=== PATIENT | female | born 1965 | race Caucasian/White ===

== ENCOUNTER 2019-05-05 22:05 | Emergency (ER) | payer SELFPAY ==
[~2019-05-05] VITALS: Ht 175.3 cm; Wt 77.1 kg
--- OUTSIDE RECORDS SUMMARY | ~2019-05-05 | XMS | Encounter Summary ---
Demographics + + + | Address | [address] | | | [place] [address] | + + + | Home Phone | | + + + | Preferred Language | Unknown | + + + | Marital Status | Unknown | + + + | Gnosticist Affiliation | Unknown | + + + | Race | Unknown | + + + | Ethnic Group | Unknown | + + + Author + + + | Author | [facility] | + + + | Organization | [facility] | + + + | Address | Unknown | + + + | Phone | Unavailable | + + + Care Team Providers + +------+ + | Care Gaming Cashier Name | Role | Phone | + +------+ + PCP | Unavailable | + +------+ + Encounter Details +--------+ + + + + | Date | Type | Department | Care Team | Description | +--------+ + + + + | 02/10/ | ED Progress | [facility] | Chaz Chong, | ED Progress Note | | 2017 | | [address] | MD Isaiah [address] | | | | Note-Transc | [place], [place] | [facility] | | | | ribed | [phone] | [place] [address] | | | | | | [phone] | | | | | | | | +--------+ + + + + Social History + +-------+ +--------+------+ | Tobacco Use | Types | Packs/Day | Years | Date | | | | | Used | | + +-------+ +--------+------+ | Never Assessed | | | | | + +-------+ +--------+------+ + + + | Sex Assigned at | Date Recorded | | | | + + + | Not on file | | + + + + + + + | Job Start Date | Occupation | Industry | + + + + | Not on file | Not on file | Not on file | + + + + + + + + | Travel History | Travel Start | Travel End | + + + + + + | No recent travel history available. | + + documented as of this encounter Plan of Treatment Not on filedocumented as of this encounter Visit Diagnoses Not on filedocumented in this encounter"
--- OUTSIDE RECORDS SUMMARY | ~2019-05-05 | XMS | Encounter Summary ---
Demographics + + + | Address | [address] | | | [place] [address] | + + + | Home Phone | | + + + | Preferred Language | Unknown | + + + | Marital Status | Unknown | + + + | Temple Affiliation | Unknown | + + + [...] Team Providers + +------+ + | Care Turkey Roll Maker Name | Role | Phone | + +------+ + PCP | Unavailable | + +------+ + Encounter Details +--------+ + + + + | Date | Type | Department | Care Team | Description | +--------+ + + + + | 02/09/ | ED Progress | [facility] | Tiarra Doran, | ED Progress Note | | 2016 | | [address] | DNP, CONSUMER MARKETING SPECIALIST-C [address] | | | | Note-Transc | [facility] [place] | [facility] | | | | ribed | [phone] | [place] [address] | | | | | | [phone] | | | | | | | [...]
--- OUTSIDE RECORDS SUMMARY | ~2019-05-05 | XMS | Encounter Summary ---
Demographics + + + | Address | [address] | | | [place] [address] | + + + | Home Phone | | + + + | Preferred Language | Unknown | + + + | Marital Status | Unknown | + + + | Mormon Affiliation | Unknown | + + + [...] Team Providers + +------+ + | Care Early Learning Teacher Name | Role | Phone | + [...] | [address] | DNP, PLATE GLASS INSTALLER HELPER-C [address] | | | | Note-Transc | [facility] [place] | [facility] | | | | ribed | [phone] | [place] [address] | | | | | | [phone] | | | | | | | [...]
--- OUTSIDE RECORDS SUMMARY | ~2019-05-05 | XMS | Clinical Summary ---
Demographics + + + | Address | [address] | | | [place] [address] | + + + | Home Phone | | + + + | Preferred Language | Unknown | + + + | Marital Status | | + + + | Rastafarian Affiliation | Unknown | + + + | Race | Unknown | + + + | Ethnic Group | Unknown | + + + Author + + + | Author | [facility] | | | and [place] | + + + | Organization | [facility] | | | and [place] | + + + | Address | Unknown | + + + | Phone | Unavailable | + + + Support + + +---------+ + | Name | Relationship | Address | Phone | + + +---------+ + | EDYTA MARK | ECON | Unknown | | + + +---------+ + Care Team Providers + +------+ + | Care Rubberizing Mechanic Name | Role | Phone | + +------+ + PCP | Unavailable | + +------+ + Allergies Not on File Medications Not on file Active Problems Not on file Social History + +-------+ +--------+------+ | Tobacco [...] recent travel history available. | + + Last Filed Vital Signs Not on file Plan of Treatment + + + + + | Health Maintenance | Due Date | Last Done | Comments | + + + + + | Vaccine: | | | | | Dtap/Tdap/Td (1 - | 7 | | | | Tdap) | | | | + + + + + | Cervical Cancer | | | | | Screening (Pap) | 8 | | | + + + + + | Breast Cancer | | | | | Screening | 3 | | | + + + + + | Vaccine: Zoster (1 | | | | | of 2) | 8 | | | + + + + + | Vaccine: Influenza | | | | | (#1) | 9 | | | + + + + + Results Not on filefrom Last 3 Months"
--- OUTSIDE RECORDS SUMMARY | ~2019-05-05 | XMS | Clinical Summary ---
Demographics + + + | Address | [address] | | | [place] [address] | + + + | Home Phone | | + + + | Preferred Language | Unknown | + + + | Marital Status | Unknown | + + + | Quaker Affiliation | Unknown | + + + | Race | Unknown | + + + | Ethnic Group | Unknown | + + + Author + + + | Organization | Unknown | + + + | Address | Unknown | + + + | Phone | Unavailable | + + + Care Team Providers + +------+ + | Care Inspector Elevators Name | Role | Phone | + +------+ + PCP | Unavailable | + +------+ + Source Comments MARK is fully live on both [facility] and [facility] InPatient.[facility] Allergies Not on File Medications Not on [...] | + + + + + | Influenza (Flu) | | | | | vaccination (#1) | 9 | | | + + + + + | Pneumococcal | Aged Out | | No longer eligible | | vaccination | | | based on patient's | | | | | age to complete this | | | | | topic | + + + + + Results Not on filefrom Last 3 Months"
--- OUTSIDE RECORDS SUMMARY | ~2019-05-05 | XMS | Clinical Summary ---
Demographics + + + | Address | [address] | | | [place] [address] | + + + | Home Phone | | + + + | Preferred Language | Unknown | + + + | Marital Status | | + + + | Synagogue Affiliation | Unknown | + + + | Race | Unknown | + + + | Ethnic Group | Unknown | + + + Author + + + | Author | [facility] | | | and [place] | + + + | Organization | [facility] | | | and [place]ana [...] Team Providers + +------+ + | Care Framer Name | Role | Phone | + [...]
--- OUTSIDE RECORDS SUMMARY | ~2019-05-05 | XMS | Clinical Summary ---
Demographics + + + | Address | [address] | | | [place] [address] | + + + | Home Phone | | + + + | Preferred Language | Unknown | + + + | Marital Status | Unknown | + + + | Uatsdin Affiliation | Unknown | + + + | Race | Unknown | + + + | Ethnic Group | Unknown | + + + Author + + + | Organization | Unknown | + + + | Address | Unknown | + + + | Phone | Unavailable | + + + Care Team Providers + +------+ + | Care Escort Blind Name | Role | Phone | + +------+ + PCP | Unavailable | + +------+ + Source Comments MARK is fully live on both [facility] and [facility] InPatient.[facility] Allergies Not on File Medications Not [...]
--- OUTSIDE RECORDS SUMMARY | ~2019-05-05 | XMS | Encounter Summary ---
Demographics + + + | Address | [address] | | | [place] [address] | + + + | Home Phone | | + + + | Preferred Language | Unknown | + + + | Marital Status | Unknown | + + + | Baptist Affiliation | Unknown | + + + [...] Team Providers + +------+ + | Care Invoice Checker Name | Role | Phone | + +------+ + PCP | Unavailable | + +------+ + Encounter Details +--------+ + + + + | Date | Type | Department | Care Team | Description | +--------+ + + + + | 02/09/ | Results | [facility] | Tiarra Doran, | | | 2016 | Only | [address] | DNP, BOOK EDITOR-C [address] | | | | | [place], [place] | [facility] [address] | | | | | [phone] | [place] [address] | | | | | | [phone] | | | | | | | [...] Not on filedocumented as of this encounter Procedures + +--------+ + + + | Procedure Name | Priori | Date/Time | Associated Diagnosis | Comments | | | ty | | | | + +--------+ + + + | CULTURE, WOUND | Routin | 02/09/2017 | | Results for this | | ABSCESS OR ASPIRATE | e | 12:00 PM | | procedure are in the | | W/ ANAEROBE | | PDT | | results section. | + +--------+ + + + documented in this encounter Results CULTURE, WOUND ABSCESS OR ASPIRATE W/ ANAEROBE (02/09/2017 12:00 PM PDT) + + + + + + | Component | Value | Ref Range | Performed | Pathologist | | | | | At | Signature | + + + + + + | CULTURE | Patient:DEVIKA, | | [facility] | | | RESULT | [facility] | | [facility] | | | | | | | | | | | | | | | | | | | | | | | | | | | | Routine | | | | | | Cultures PROCEDURE: | | | | | | | | | | | | Wound Culture [P1] | | | | | | COLLECTED: | | | | | | | | | | | | 02/09/2017 12:00 | | | | | | PDTSOURCE: | | | | | | Exudate | | | | | | | | | | | | STARTED: | | | | | | 02/09/2017 | | | | | | 17:41 PDTFREE TEXT | | | | | | SOURCE: | | | | | | | | | | | | ACCESSION: | | | | | | | | | | | | [phone] SITE: | | | | | | | | | | | | Toenail FINAL | | | | | | REPORTSFinal Report | | | | | | []Verified Date/Time: | | | | | | 02/12/2017 08:44 PDT4+ | | | | | | Staphylococcus aureus | | | | | | STAINS / | | | | | | PREPARATIONSGram St | | | | | | []Verified Date/Time: | | | | | | 02/09/2017 20:40 PDT 3+ | | | | | | white blood cells 1+ | | | | | | Gram Positive Cocci | | | | | | SUSCEPTIBILITY | | | | | | RESULTS | | | | | | | | | | | | Staphylococcus | | | | | | aureusAntibiotic | | | | | | CHRISTINA Dilutn CHRISTINA | | | | | | InterpBenzylpenicillin | | | | | | | | | | | | ResistantClindamycin | | | | | | <=0.25 | | | | | | | | | | | | SusceptibleErythromyci | | | | | | n <=0.25 | | | | | | | | | | | | SusceptibleOxacillin | | | | | | <=0.25 | | | | | | | | | | | | SusceptibleRifampin | | | | | | <=0.5 | | | | | | | | | | | | SusceptibleTetracycline | | | | | | <=1 | | | | | | | | | | | | SusceptibleTrimethoprim/ | | | | | | <=10 | | | | | | SusceptibleSulfamethox | | | | | | azoleVancomycin | | | | | | 1 | | | | | | Susceptible Performing | | | | | | LocationsP1: This | | | | | | test was performed at: | | | | | | [facility] | | | | + + + + + + + + | Specimen | + + | | + + + + + + + | Performing | Address | City/State/Zipcode | Phone Number | | Organization | | | | + + + + + | [facility] | [address] | [place] [address] | | | LAB | | | | + + + + + | [facility] | [address] | [place] [address] | | | LAB | | | | + + + + + documented in this encounter Visit Diagnoses Not on filedocumented in this encounter"
--- OUTSIDE RECORDS SUMMARY | ~2019-05-05 | XMS | Encounter Summary ---
Demographics + + + | Address | [address] | | | [place] [address] | + + + | Home Phone | | + + + | Preferred Language | Unknown | + + + | Marital Status | Unknown | + + + | Hoahaoism Affiliation | Unknown | + + + [...] Team Providers + +------+ + | Care Mobile Equipment Operator Name | Role | Phone | + [...] [address] | | | | Note-Transc | [place], [place] | [facility] | | | | ribed | [phone] | [place] [address] | | | | | | [phone] | | | | | | | [...]
--- OUTSIDE RECORDS SUMMARY | ~2019-05-05 | XMS | Encounter Summary ---
Demographics + + + | Address | [address] | | | [place] [address] | + + + | Home Phone | | + + + | Preferred Language | Unknown | + + + | Marital Status | Unknown | + + + | Amish Affiliation | Unknown | + + + [...] Team Providers + +------+ + | Care Network Designer Name | Role | Phone | + [...] | [address] | DNP, STORAGE BATTERY CHARGER-C [address] | | | | | [place], [place] | [facility] [address] | | | | | [phone] | [place] [address] | | | | | | [phone] | | | | | | | [...] | | | | | | | [phone] SITE: | | | | | | [...] at: | | | | | | [facility] | | | | + + + + + + + + | Specimen | + + | | + + + + + + + | Performing | Address | City/State/Zipcode | Phone Number | | Organization | | | | + + + + + | [facility] | [address] | [place] [address] | | | LAB | | | | + + + + + | [facility] | [address] | [place] [address] | | | LAB | | | | + + + + + documented in this encounter Visit Diagnoses Not on filedocumented in this encounter"
[~2019-05-05 22:05] MED LIST: IBUPROFEN800 MG PO; SENNA8.6 MG PO; VITAMIN D5000 UNIT PO
== END 2019-05-06 00:30 | disposition home or self-care (01) ==
LOC: ED 22:05
DX: L50.9 Urticaria, unspecified (principal); I10 Essential (primary) hypertension; Z88.0 Allergy status to penicillin; Z88.5 Allergy status to narcotic agent; Z88.8 Allergy status to other drugs, medicaments and biological substances
CPT/HCPCS: 99282

== ENCOUNTER 2020-05-28 08:23 | Day surgery (SDC) | payer BC ==
[~2020-05-28] VITALS: Ht 167.6 cm; Wt 74.5 kg
[2020-05-28] MEDS ORDERED: OMEGA 3 1,0001 EACH PO (08:35)
[2020-05-28] MEDS ORDERED: MULTI VITAMIN1 EACH PO (08:36)
--- NOTE | 2020-05-28 10:01 | NUR ---
05/28/20 Christiana Cazares 0987 PATIENT ARRIVES TO PACU RESTING WITH EYES CLOSED. OPENS EYES WITH VERBAL STIMULI. RESP EVEN AND UNLABORED, ROOM AIR SATS >93%.
--- NOTE | 2020-05-28 15:35 | OR ---
[facility] [address] [place], [place] [address] Signed DATE OF OPERATION: 05/28/2020 SURGEON: Landy Delong MD PREOPERATIVE DIAGNOSIS: Colon screening. POSTOPERATIVE DIAGNOSIS: Normal colon and normal terminal ileum. PROCEDURE: Total colonoscopy to cecum with intubation of ileum. ANESTHESIA: Intravenous sedation, fentanyl 100 mcg, Versed 4 mg. INDICATIONS: This 54-year-old white woman is a patient Dr. Ash and is referred for screening colonoscopy. She has never had colonoscopy in the past. She shows no symptoms of bleeding, diarrhea, or constipation and has no family history of colon cancer. She is admitted at this time to undergo colonoscopy, understanding the risks of bleeding, infection, or perforation. FINDINGS: The prep was good. Complete colonoscopy was undertaken to the cecum without question. The ileum was intubated and there were no problems there either. The entire colon and rectum were normal. DESCRIPTION OF PROCEDURE: The patient was brought to the endoscopy suite and placed in lateral decubitus position, given intravenous sedation to the point of slurred speech and nystagmus. Digital rectal examination was normal. An Olympus video colonoscope was passed into the rectum and manipulated throughout the colon ultimately intubating the cecum. The ileocecal valve and appendiceal orifice were normal. With various manipulations, the terminal ileum was intubated and the ileum examined fully, showing no sign of abnormality either. The scope was withdrawn and careful withdrawal of scope showed no sign of abnormality throughout the entire colon. Retroflexed view of the rectum was normal as well. The scope was removed, and the patient was taken to the recovery room in good condition. Electronically Signed By: LANDY DELONG MD 05/28/20 1535 PATIENT NAME: MARI FORTUNE OPERATIVE REPORT DATE OF : 69 REPORT #: [id number] PHYSICIAN: LANDY DELONG MD PCP: WESLY ASH MD REPORT IS CONFIDENTIAL AND NOT TO BE RELEASED WITHOUT AUTHORIZATION [facility] [address], [place] [address] Signed CONCLUDING DIAGNOSIS: Normal colon and terminal ileum. PLAN: Recommend repeat colonoscopy in 10 years or sooner if symptoms should occur. She will return to the ongoing care of Dr. Ash. MD ANGELLA Yun/GERDAL /[id number] cc: Wesly Ash MD Copies: WESLY ASH MD ~ Electronically Signed By: LANDY DELONG MD 05/28/20 1535 PATIENT NAME: MARI FORTUNEE OPERATIVE REPORT DATE OF : 69 REPORT #: [id number] PHYSICIAN: LANDY DELONG MD PCP: WESLY ASH MD REPORT IS CONFIDENTIAL AND NOT TO BE RELEASED WITHOUT AUTHORIZATION
== END 2020-05-28 10:50 | disposition home or self-care (01) ==
LOC: OPS 08:23 → DS 09:30 → OPS 09:30 → DS 11:00
PROVIDERS: ATTEND Surgery
PROC: 0DJD8ZZ Inspection of Lower Intestinal Tract, Via Natural or Artificial Opening Endoscopic (ICD-10-PCS; principal; 2020-05-28 09:30)
DX: Z12.11 Encounter for screening for malignant neoplasm of colon (principal); R32 Unspecified urinary incontinence; Z88.5 Allergy status to narcotic agent; Z88.0 Allergy status to penicillin; Z88.8 Allergy status to other drugs, medicaments and biological substances
CPT/HCPCS: G0500; J2250; J3010

== ENCOUNTER 2024-10-21 06:42 | Emergency (ER) | payer OTHER ==
[~2024-10-21] VITALS: Ht 172.7 cm; Wt 76.0 kg
[~2024-10-21 06:42] MED LIST changes: +ATORVASTATIN CA40 MG PO; +CYCLOBENZAPRINE10 MG PO; +GLIPIZIDE ER2.5 MG PO; +LISINOPRIL20 MG PO; +MULTI VITAMIN1 EACH PO; +OMEGA 3 1,0001 EACH PO
[2024-10-21] MEDS ORDERED: TRULICITY1.5 MG/0.5 (07:02)
[2024-10-21] MEDS ORDERED: ASPIRIN 81 MG CHEW PO ONE (07:15)
[2024-10-21 07:22] LABS: BASOPHILS 0.2 % (0-2); EOSINOPHILS 0.1 % (0-6); HEMOGLOBIN 13.3 g/dL (12.0-18.0); LYMPHOCYTES 11.2 % (24-44); MCH 30.6 (27-36); MCHC 35.1 g/dl (30-36); MCV 87.1 fl (81-99); MONOCYTES 3.6 % (0-12); NEUTROPHILS 84.9 % (39-80); PLATELET COUNT 169 K/uL (140-440); RBC 4.36 M/ul (4.3-5.7); RDW 12.5 (10.5-15.0)
[2024-10-21 07:38] LABS: ALBUMIN 4.1 g/dL (3.4-5.0); ALBUMIN/GLOBULIN RATIO 1.28 (1.1-2.4); ALKALINE PHOSPHATASE 80 U/L (46-116); ALT (SGPT) 38 U/L (14-59); AST (SGOT) 36 U/L (15-37); BILIRUBIN, TOTAL 0.8 mg/dL (0.2-1.0); BUN/CREATININE RATIO 20.21 (6.0-28.6); CARBON DIOXIDE 27 mmol/L (21-32); CHLORIDE 103 mmol/L (98-107); CREATININE, SERUM 0.94 mg/dL (0.55-1.02); GLOMERULAR FILTRATION RATE,EST 71 mL/min (>60); MAGNESIUM 2.1 mg/dL (1.8-2.4); PROTEIN, TOTAL 7.3 g/dL (6.4-8.2); UREA NITROGEN 19 mg/dL (7-18)
[2024-10-21 08:19] VITALS: BP 125/70
--- NOTE | 2024-10-21 14:50 | EKG ---
[facility] [address] [facility] [place] [address] Signed Normal sinus rhythm Normal ECG When compared with ECG of 28-JAN-2023 20:53, No significant change was found Confirmed by Med Kirkpatrick MD () on 10/21/2024 2:49:53 PM Electronically Signed By: MED KIRKPATRICK MD 10/21/24 1450 PATIENT NAME: DILCIA FORTUNEINE [facility] Electrocardiogram DATE OF : 69 PHYSICIAN: MED KIRKPATRICK MD REPORT #: [id number] REPORT IS CONFIDENTIAL AND NOT TO BE RELEASED WITHOUT AUTHORIZATION
== END 2024-10-21 08:19 | disposition home or self-care (01) ==
LOC: ED 06:42
PROVIDERS: Emergency Medicine
DX: R07.89 Other chest pain (principal); I25.2 Old myocardial infarction; I10 Essential (primary) hypertension; E78.00 Pure hypercholesterolemia, unspecified; R73.03 Prediabetes; Z95.5 Presence of coronary angioplasty implant and graft; Z88.0 Allergy status to penicillin; Z88.5 Allergy status to narcotic agent; Z88.8 Allergy status to other drugs, medicaments and biological substances; Z79.84 Long term (current) use of oral hypoglycemic drugs; Z79.85 Long-term (current) use of injectable non-insulin antidiabetic drugs; Z79.899 Other long term (current) drug therapy
CPT/HCPCS: 36415; 71045; 80053; 83735; 84484; 85025; 93005; 93010; 99285-25; A9270